=== PATIENT | female | born 1995 | race African-American/Black ===

== ENCOUNTER 2018-02-22 21:45 | Emergency (ER) | payer MEDICAID ==
[~2018-02-22] VITALS: Ht 167.6 cm; Wt 95.0 kg
[2018-02-22 23:18] VITALS: BP 120/73
== END 2018-02-22 23:18 | disposition home or self-care (01) ==
LOC: ER 21:45
DX: S40.011A Contusion of right shoulder, initial encounter (principal); V49.40XA Driver injured in collision with unspecified motor vehicles in traffic accident, initial encounter; Y93.89 Activity, other specified; Y92.410 Unspecified street and highway as the place of occurrence of the external cause
CPT/HCPCS: 99283